=== PATIENT | female | born 1995 | race Caucasian/White ===

== ENCOUNTER 2018-01-16 10:14 | Emergency (ER) | payer OTHER ==
[~2018-01-16] VITALS: Ht 149.9 cm; Wt 65.3 kg
[2018-01-16 10:36] VITALS: Ht 149.9 cm; Wt 65.3 kg
[2018-01-16 11:29] VITALS: BP 101/59
== END 2018-01-16 11:29 | disposition home or self-care (01) ==
LOC: ED 10:14
DX: J02.9 Acute pharyngitis, unspecified (principal); N39.0 Urinary tract infection, site not specified; Z88.0 Allergy status to penicillin; Z88.1 Allergy status to other antibiotic agents

== ENCOUNTER 2019-06-26 15:07 | Emergency (ER) | payer OTHER ==
[~2019-06-26] VITALS: Ht 149.9 cm; Wt 69.4 kg
[2019-06-26 15:18] VITALS: Ht 149.9 cm; Wt 69.4 kg
[2019-06-26 18:47] LABS: PLATELET COUNT 252 x10^3mcL (130-400); RED CELL DISTRIBUTION WIDTH 13.1 % (11.5-14.5)
[2019-06-26 18:51] LABS: CALCIUM 8.7 mg/dL (8.5-10.1); CARBON DIOXIDE 28.1 mmol/L (21-32); CHLORIDE SERUM 102 mmol/L (98-107); CREATININE SERUM 0.6 mg/dL (0.6-1.0); GFR1 > 60 mL/min; GLUCOSE SERUM 84 mg/dL (74-106); POTASSIUM SERUM 3.6 mmol/L (3.5-5.1); SODIUM SERUM 139 mmol/L (136-145)
[2019-06-26 18:56] LABS: ALBUMIN 4.2 g/dL (3.4-5.0); ALKALINE PHOSPHATASE 126 U/L (46-116); ALT/SGPT 45 U/L (14-59); AST/SGOT 27 U/L (15-37); BILIRUBIN TOTAL 0.67 mg/dL (0.20-1.00); LIPASE 71 IU/L (73-393)
[2019-06-26 18:57] LABS: microscopic required? YES; urine erythrocyte TRACE (NEGATIVE)
[2019-06-26 18:58] LABS: TOTAL PROTEIN, SERUM 8.4 g/dL (6.4-8.2)
[2019-06-26 19:35] LABS: MONOCYTE 1 % (0-7); SEGMENTED NEUTROPHILS 81 % (37-75)
[2019-06-26 19:36] LABS: rbc morphology (normal/abnorm) NORMAL (NORMAL)
[2019-06-26 20:00] VITALS: BP 110/68
== END 2019-06-26 20:00 | disposition home or self-care (01) ==
LOC: ED 15:07
PROVIDERS: Student in an Organized Health Care Education/Training Program
DX: R11.2 Nausea with vomiting, unspecified (principal); R30.0 Dysuria; R19.7 Diarrhea, unspecified; R10.13 Epigastric pain
CPT/HCPCS: 36415; Q0162